=== PATIENT | female | born 1950 | race Hispanic/Latino ===

== ENCOUNTER 2017-03-14 10:14 | Day surgery (SDC) | payer MEDICARE, BC ==
[~2017-03-14 10:14] MED LIST: ACETAMINOPHEN 325 MG TABLET PO PRN; ACETYLCHOLINE CHLORIDE 20 DROP KIT IO PRN; BUPIVACAINE HCL/PF 30 ML VIAL IJ PRN; CYCLOPENTOLATE HCL 20 DROP BTL RIGHTEYE PRN; DEXTROSE 5%-0.5 NORMAL SALINE 1,000 ML IV PRN; EPINEPHrine 1 MG/ML AMPUL IO PRN; HYALURONATE SODIUM 0.4 ML DISP.SYRIN IO PRN; LIDOCAINE HCL/PF 200 MG/5 ML AMPUL TP PRN; LIDOCAINE HCL/PF 5 ML VIAL IO PRN; NORMAL SALINE 3 ML BOX IV PRN; TETRACAINE HCL 150 DROP BTL OP PRN
[2017-03-14] MEDS: TROPICAMIDE 150 DROP BTL RIGHTEYE PRN ×3 (11:03→11:33)
[2017-03-14] MEDS: PHENYLEPHRINE HCL 50 DROP BTL RIGHTEYE PRN ×3 (11:03→11:33)
[2017-03-14] MEDS ORDERED: DEXTROSE 5%-0.5 NORMAL SALINE 1,000 ML IV ONE (11:15)
[2017-03-14] MEDS ORDERED: DEXTROSE 5% IV ONE (11:50)
[2017-03-14] MEDS ORDERED: [UNRECOGNIZED DRUG - OTHER] IV ONE (11:50)
[2017-03-14] MEDS: HYALURONATE SODIUM 0.85 ML DISP.SYRIN IO PRN ×2 (12:05→12:10)
[2017-03-14] MEDS ORDERED: TETRACAINE HCL 150 DROP BTL RIGHTEYE ONE (12:23)
[2017-03-14 13:53] VITALS: BP 91/61
== END 2017-03-14 10:15 | disposition home or self-care (01) ==
LOC: AMB 10:14
PROVIDERS: ATTEND Ophthalmology
PROC: 08RJ3JZ Replacement of Right Lens with Synthetic Substitute, Percutaneous Approach (ICD-10-PCS; principal; 2017-03-14 11:45)
DX: H26.9 Unspecified cataract (principal); I10 Essential (primary) hypertension; K21.9 Gastro-esophageal reflux disease without esophagitis; Z68.29 Body mass index [BMI] 29.0-29.9, adult

== ENCOUNTER 2017-03-28 11:37 | Day surgery (SDC) | payer MEDICARE, BC ==
[~2017-03-28 11:37] MED LIST changes: +CYCLOPENTOLATE HCL 20 DROP BTL LEFTEYE PRN; -CYCLOPENTOLATE HCL 20 DROP BTL RIGHTEYE PRN
[2017-03-28] MEDS: TROPICAMIDE 150 DROP BTL LEFTEYE PRN ×3 (12:27→12:55)
[2017-03-28] MEDS: PHENYLEPHRINE HCL 50 DROP BTL LEFTEYE PRN ×3 (12:27→12:55)
[2017-03-28] MEDS ORDERED: RINGER'S SOLUTION,LACTATED 1,000 ML IV ONE (12:48)
[2017-03-28] MEDS ORDERED: DEXTROSE 5%-0.5 NORMAL SALINE 1,000 ML IV ONE (12:48)
[2017-03-28] MEDS: HYALURONATE SODIUM 0.85 ML DISP.SYRIN IO PRN ×2 (14:00→14:10)
[2017-03-28 16:04] VITALS: BP 100/63
== END 2017-03-28 11:38 | disposition home or self-care (01) ==
LOC: AMB 11:37
PROVIDERS: ATTEND Ophthalmology
PROC: 08RK3JZ Replacement of Left Lens with Synthetic Substitute, Percutaneous Approach (ICD-10-PCS; principal; 2017-03-28 13:15)
DX: H26.8 Other specified cataract (principal); I10 Essential (primary) hypertension; K21.9 Gastro-esophageal reflux disease without esophagitis; Z68.27 Body mass index [BMI] 27.0-27.9, adult